=== PATIENT | male | born 1955 | race Caucasian/White ===

== ENCOUNTER 2019-07-01 18:20 | Inpatient (IN) ==
[2019-07-01 19:00] LABS: INR 0.8; Prothrombin Time 9.6 Seconds (9.4-12.1)
[2019-07-01] MEDS ORDERED: Ondansetron 4 MG/2 ML VIAL IVP ONE (19:32)
[2019-07-01] MEDS ORDERED: Morphine Sulfate 2 MG/ML SYRINGE IVP ONE (19:32)
[2019-07-01 19:34] LABS: Red Cell Distribution Width 13.1 % (11.5-14.5)
[2019-07-01 19:45] LABS: Bilirubin,Urine Small (Negative); Blood,Urine Negative (Negative); Clarity,Urine Clear (Clear); Color,Urine Orange (Yellow); Glucose,Urine (UA) Normal (Normal); Ketones,Urine 40 mg/dL (Negative); Leukocyte Esterase,Urine Trace (Negative); Nitrite,Urine Negative (Negative); Protein,Urine 100 mg/dL (Neg-Trace); Specific Gravity,Urine 1.025 (1.010-1.025); Urobilinogen,Urine >=8.0 mg/dL (Normal)
[2019-07-01 19:46] LABS: Hyaline Casts,Urine None Seen per lpf (None-Few); RBC,Urine 0-3 per hpf (0-3); Squamous Epithelial Cell,Urine Few per lpf (None-Few); WBC,Urine 0-3 per hpf (0-3)
[2019-07-01] MEDS ORDERED: Isovue-370 500 ML BOTTLE IVP ONE (19:54)
[2019-07-01 19:55] LABS: Bacteria,Urine Few per hpf (None-Few); Mucus,Urine Few per lpf (Few)
[2019-07-01 19:55] LABS: Basophils # 0.1 K/mcL (0.0-0.2); Basophils % 1.4 %; Eosinophils % 0.2 %; Hematocrit 40.5 % (37.5-50.1); Hemoglobin 14.8 g/dL (12.9-16.9); Immature Platelets 8.1 % (1.1-6.1); Lymphocytes # 2.2 K/mcL (0.6-4.6); Lymphocytes % 42.9 %; Mean Corpuscular HGB Conc 36.5 g/dL (31.6-35.5); Mean Corpuscular Hemoglobin 33.4 pg (28.0-33.3); Mean Corpuscular Volume 91.4 fL (83.0-100.0); Mean Platelet Volume 10.3 fL (9.4-12.4); Monocytes # 0.6 K/mcL (0.0-1.3); Monocytes % 12.7 %; Neutrophils # 2.1 K/mcL (1.6-8.9); Red Blood Count 4.43 M/mcL (4.19-5.50); Segmented Neutrophils % 41.8 %
[2019-07-01 20:02] LABS: Alanine Aminotransferase 116 Units/L (7-52); Albumin 3.9 g/dL (3.5-5.7); Albumin/Globulin Ratio 1.3 (1.1-2.2); Alkaline Phosphatase 85 Units/L (34-104); Aspartate Amino Transferase 132 Units/L (13-39); BUN/Creatinine Ratio 23 (6-26); Bilirubin,Direct 0.6 mg/dL (0.0-0.2); Bilirubin,Total 1.6 mg/dL (0.3-1.0); Blood Urea Nitrogen 14 mg/dL (8-23); Calcium 8.8 mg/dL (8.6-10.3); Carbon Dioxide 15 mEq/L (23-29); Chloride 95 mEq/L (98-107); Globulin 2.9 g/dL (2.4-3.5); Glucose 81 mg/dL (70-105); Lipase 22 Units/L (11-82); Osmolality,Calculated 272 (280-300); Potassium 3.3 mEq/L (3.5-5.1); Sodium 131 mEq/L (136-145); Total Protein 6.8 g/dL (6.4-8.9); Troponin I < 0.03 ng/mL (< 0.04); eGFR For African Americans > 60 (> 60); eGFR For Non-African Americans > 60 (> 60)
[2019-07-01 20:04] LABS: Platelet Count 90 K/mcL (140-400)
[2019-07-01 20:05] LABS: Platelet Estimate Decreased (Normal)
[2019-07-01] MEDS ORDERED: Pantoprazole 40 MG VIAL IVP ONE (21:07)
[2019-07-01] MEDS ORDERED: Metoclopramide 10 MG/2 ML VIAL IVP ONE (21:45)
[2019-07-01] MEDS ORDERED: Naloxone 0.4 MG/ML INJ IVP PRN (21:50)
[2019-07-01] MEDS ORDERED: *HR* LORazepam 2 MG/ML VIAL IVP PRN ×2 (21:56)
[2019-07-01] MEDS: 0.9 % Sodium Chloride 1,000 ML IVC SCH (22:20)
[2019-07-01] MEDS: Nicotine 21 MG PATCH.TD24 TD SCH (23:10)
[2019-07-02] MEDS: *HR* Promethazine 25 MG/ML VIAL IVP PRN ×3 (01:06→21:27)
[2019-07-02 02:33] LABS: Mean Corpuscular Volume 93.7 fL (83.0-100.0); Red Cell Distribution Width 13.2 % (11.5-14.5)
[2019-07-02 02:35] LABS: Hematocrit 37.4 % (37.5-50.1); Hemoglobin 13.2 g/dL (12.9-16.9); INR 0.9; Immature Platelets 8.1 % (1.1-6.1); Mean Corpuscular HGB Conc 35.3 g/dL (31.6-35.5); Mean Corpuscular Hemoglobin 33.1 pg (28.0-33.3); Prothrombin Time 10.4 Seconds (9.4-12.1); Red Blood Count 3.99 M/mcL (4.19-5.50); White Blood Count 5.3 K/mcL (4.3-11.1)
[2019-07-02 03:04] LABS: Alanine Aminotransferase 110 Units/L (7-52); Albumin 3.6 g/dL (3.5-5.7); Albumin/Globulin Ratio 1.3 (1.1-2.2); Alkaline Phosphatase 81 Units/L (34-104); Aspartate Amino Transferase 112 Units/L (13-39); BUN/Creatinine Ratio 22 (6-26); Bilirubin,Direct 0.5 mg/dL (0.0-0.2); Bilirubin,Total 1.5 mg/dL (0.3-1.0); Blood Urea Nitrogen 14 mg/dL (8-23); Calcium 8.1 mg/dL (8.6-10.3); Carbon Dioxide 18 mEq/L (23-29); Chloride 98 mEq/L (98-107); Globulin 2.8 g/dL (2.4-3.5); Glucose 78 mg/dL (70-105); Magnesium 1.8 mg/dL (1.6-2.6); Osmolality,Calculated 269 (280-300); Phosphorous 3.7 mg/dL (2.7-4.5); Potassium 3.5 mEq/L (3.5-5.1); Sodium 130 mEq/L (136-145); Total Protein 6.4 g/dL (6.4-8.9); eGFR For African Americans > 60 (> 60); eGFR For Non-African Americans > 60 (> 60)
[2019-07-02] MEDS: Ondansetron 4 MG/2 ML VIAL IVP PRN (03:21)
[2019-07-02] MEDS: 0.9 % Sodium Chloride 1,000 ML IVC SCH (03:27)
[2019-07-02] MEDS: *HR* LORazepam 2 MG/ML VIAL IVP PRN ×3 (03:33→18:38)
[2019-07-02] MEDS: Pantoprazole 40 MG VIAL IVP SCH (07:57)
[2019-07-02] MEDS: Nicotine 21 MG PATCH.TD24 TD SCH (07:57)
[2019-07-02] MEDS ORDERED: *HR* Propofol 200 MG/20 ML VIAL IVP ONE (09:23)
[2019-07-02] MEDS ORDERED: Lidocaine -MPF 2% 2 ML VIAL ONE (09:23)
[2019-07-02] MEDS ORDERED: *HR* Midazolam HCl 2 MG/2 ML VIAL ONE (10:16)
[2019-07-02] MEDS ORDERED: Fluconazole 400 MG/200 ML 400 MG/200 ML BAG IVPB ONE (11:09)
[2019-07-02] MEDS: Thiamine (B-1) 100 MG, Folic Acid 1 MG, MVI, adult with vitamin K 10 ML in 0.9 % Sodi... IVPB SCH (18:38)
[2019-07-03] MEDS: 0.9 % Sodium Chloride 1,000 ML IVC SCH ×3 (01:02→20:21)
[2019-07-03] MEDS: *HR* Promethazine 25 MG/ML VIAL IVP PRN ×3 (06:44→23:43)
[2019-07-03 07:06] LABS: Hematocrit 37.3 % (37.5-50.1); Red Cell Distribution Width 13.2 % (11.5-14.5)
[2019-07-03 07:08] LABS: Hemoglobin 13.2 g/dL (12.9-16.9); Mean Corpuscular HGB Conc 35.4 g/dL (31.6-35.5); Mean Corpuscular Hemoglobin 33.8 pg (28.0-33.3); Mean Corpuscular Volume 95.6 fL (83.0-100.0); Mean Platelet Volume 10.6 fL (9.4-12.4); Red Blood Count 3.9 M/mcL (4.19-5.50); White Blood Count 4.2 K/mcL (4.3-11.1)
[2019-07-03 07:28] LABS: Alanine Aminotransferase 72 Units/L (7-52); Albumin 3.3 g/dL (3.5-5.7); Albumin/Globulin Ratio 1.3 (1.1-2.2); Alkaline Phosphatase 65 Units/L (34-104); Aspartate Amino Transferase 50 Units/L (13-39); BUN/Creatinine Ratio 19 (6-26); Bilirubin,Direct 0.4 mg/dL (0.0-0.2); Bilirubin,Total 1.4 mg/dL (0.3-1.0); Blood Urea Nitrogen 10 mg/dL (8-23); Calcium 8.3 mg/dL (8.6-10.3); Carbon Dioxide 25 mEq/L (23-29); Chloride 98 mEq/L (98-107); Globulin 2.6 g/dL (2.4-3.5); Glucose 93 mg/dL (70-105); Osmolality,Calculated 279 (280-300); Potassium 3.2 mEq/L (3.5-5.1); Sodium 135 mEq/L (136-145); Total Protein 5.9 g/dL (6.4-8.9); eGFR For African Americans > 60 (> 60); eGFR For Non-African Americans > 60 (> 60)
[2019-07-03] MEDS ORDERED: Potassium Chloride Elixir 20 MEQ/15 ML UDC PO ONE (07:54)
[2019-07-03 08:36] LABS: Hepatitis B Surface Antigen Nonreactive (Nonreactive)
[2019-07-03] MEDS ORDERED: Fluconazole 40 MG/ML UDC PO SCH (09:00)
[2019-07-03 09:05] LABS: Hepatitis C Virus Antibody Nonreactive (Nonreactive)
[2019-07-03 09:06] LABS: Hepatitis A Antibody IgM Nonreactive (Nonreactive); Hepatitis B Core IgM Nonreactive (Nonreactive)
[2019-07-03] MEDS: Pantoprazole 40 MG VIAL IVP SCH (09:16)
[2019-07-03] MEDS: Nicotine 21 MG PATCH.TD24 TD SCH (09:17)
[2019-07-03] MEDS ORDERED: Fluconazole 100 MG TABLET PO SCH (10:45)
[2019-07-03] MEDS: Fluconazole 100 MG TABLET PO SCH (11:10)
[2019-07-03] MEDS: *HR* LORazepam 2 MG/ML VIAL IVP PRN ×2 (11:11→17:23)
[2019-07-03] MEDS: Ondansetron 4 MG/2 ML VIAL IVP PRN ×2 (11:11→20:31)
[2019-07-03] MEDS: Thiamine (B-1) 100 MG, Folic Acid 1 MG, MVI, adult with vitamin K 10 ML in 0.9 % Sodi... IVPB SCH (17:19)
[2019-07-03] MEDS: traZODone 50 MG TABLET PO SCH (20:21)
[2019-07-04] MEDS ORDERED: *HR* Promethazine 25 MG/ML VIAL IVP ONE (04:24)
[2019-07-04] MEDS ORDERED: Ketorolac 15 MG/ML VIAL IVP ONE (04:25)
[2019-07-04] MEDS: Ondansetron 4 MG/2 ML VIAL IVP PRN ×2 (04:34→15:53)
[2019-07-04 06:22] LABS: Red Cell Distribution Width 13.2 % (11.5-14.5)
[2019-07-04 06:24] LABS: Hematocrit 34.5 % (37.5-50.1); Hemoglobin 12.1 g/dL (12.9-16.9); Immature Platelets 9.2 % (1.1-6.1); Mean Corpuscular HGB Conc 35.1 g/dL (31.6-35.5); Mean Corpuscular Hemoglobin 33.3 pg (28.0-33.3); Mean Platelet Volume 11.9 fL (9.4-12.4); Red Blood Count 3.63 M/mcL (4.19-5.50); White Blood Count 4.7 K/mcL (4.3-11.1)
[2019-07-04] MEDS ORDERED: 0.9 % Sodium Chloride 1,000 ML IVC SCH (09:15)
[2019-07-04] MEDS: *HR* Promethazine 25 MG/ML VIAL IVP PRN (10:27)
[2019-07-04] MEDS: Pantoprazole 40 MG VIAL IVP SCH (10:27)
[2019-07-04] MEDS: Fluconazole 100 MG TABLET PO SCH (10:27)
[2019-07-04] MEDS: Nicotine 21 MG PATCH.TD24 TD SCH (10:28)
[2019-07-04] MEDS: 0.9 % Sodium Chloride 1,000 ML IVC SCH (10:28)
[2019-07-04 16:51] LABS: Alanine Aminotransferase 69 Units/L (7-52); Albumin 3.5 g/dL (3.5-5.7); Albumin/Globulin Ratio 1.3 (1.1-2.2); Alkaline Phosphatase 82 Units/L (34-104); Aspartate Amino Transferase 48 Units/L (13-39); BUN/Creatinine Ratio 12 (6-26); Bilirubin,Direct 0.2 mg/dL (0.0-0.2); Bilirubin,Indirect 0.5 mg/dL (0.0-1.0); Bilirubin,Total 0.7 mg/dL (0.3-1.0); Blood Urea Nitrogen 10 mg/dL (8-23); Calcium 8.5 mg/dL (8.6-10.3); Carbon Dioxide 23 mEq/L (23-29); Chloride 100 mEq/L (98-107); Globulin 2.7 g/dL (2.4-3.5); Glucose 110 mg/dL (70-105); Osmolality,Calculated 272 (280-300); Potassium 3.3 mEq/L (3.5-5.1); Sodium 131 mEq/L (136-145); Total Protein 6.2 g/dL (6.4-8.9); eGFR For African Americans > 60 (> 60); eGFR For Non-African Americans > 60 (> 60)
[2019-07-04] MEDS: Thiamine (B-1) 100 MG, Folic Acid 1 MG, MVI, adult with vitamin K 10 ML in 0.9 % Sodi... IVPB SCH (19:18)
[2019-07-04] MEDS: *HR* LORazepam 2 MG/ML VIAL IVP PRN (20:48)
[2019-07-04] MEDS: traZODone 50 MG TABLET PO SCH (20:48)
[2019-07-05] MEDS: Nicotine 21 MG PATCH.TD24 TD SCH (08:51)
[2019-07-05] MEDS: Pantoprazole 40 MG VIAL IVP SCH (08:51)
[2019-07-05] MEDS: Fluconazole 100 MG TABLET PO SCH (08:51)
[2019-07-05 13:35] LABS: Hematocrit 38.1 % (37.5-50.1); Hemoglobin 13.5 g/dL (12.9-16.9); Mean Corpuscular HGB Conc 35.4 g/dL (31.6-35.5); Mean Corpuscular Hemoglobin 33.8 pg (28.0-33.3); Mean Corpuscular Volume 95.3 fL (83.0-100.0); Mean Platelet Volume 10.9 fL (9.4-12.4); Platelet Count 120 K/mcL (140-400); White Blood Count 6.1 K/mcL (4.3-11.1)
[2019-07-05 13:58] LABS: Albumin 3.5 g/dL (3.5-5.7); Albumin/Globulin Ratio 1.3 (1.1-2.2); Bilirubin,Direct 0.2 mg/dL (0.0-0.2); Bilirubin,Indirect 0.5 mg/dL (0.0-1.0); Bilirubin,Total 0.7 mg/dL (0.3-1.0); Globulin 2.8 g/dL (2.4-3.5); Total Protein 6.3 g/dL (6.4-8.9)
[2019-07-05 14:00] LABS: BUN/Creatinine Ratio 15 (6-26); Blood Urea Nitrogen 9 mg/dL (8-23); Calcium 8.6 mg/dL (8.6-10.3); Carbon Dioxide 19 mEq/L (23-29); Chloride 103 mEq/L (98-107); Glucose 113 mg/dL (70-105); Magnesium 1.6 mg/dL (1.6-2.6); Osmolality,Calculated 273 (280-300); Potassium 4.3 mEq/L (3.5-5.1); Sodium 132 mEq/L (136-145); eGFR For African Americans > 60 (> 60); eGFR For Non-African Americans > 60 (> 60)
[2019-07-05] MEDS ORDERED: *HR* LORazepam 1 MG TABLET PO PRN ×3 (14:14)
[2019-07-05] MEDS: traZODone 50 MG TABLET PO SCH (21:25)
[2019-07-06 06:33] VITALS: BP 114/74
[2019-07-06] MEDS: Fluconazole 100 MG TABLET PO SCH (07:47)
[2019-07-06] MEDS: Nicotine 21 MG PATCH.TD24 TD SCH (07:47)
[2019-07-06] MEDS ORDERED: FLU Vac QV 19-20 (6Month+)/PF 0.5 ML SYRINGE IM ONE (10:05)
== END 2019-07-06 12:37 | disposition home or self-care (01) | DRG 369 ==
LOC: 3ANU 18:20 → EMEROOARM 18:20 → SUATTDRO 21:46 → 3ANU 21:46 → SUATTDRO 07-03 13:53
PROVIDERS: ADMIT Internal Medicine; ATTEND Internal Medicine
PROC: ENDOEBX (2019-07-02 09:45)

== ENCOUNTER 2020-11-09 02:26 | Observation (INO) ==
[2020-11-10] MEDS ORDERED: Naloxone 0.4 MG/ML INJ IVP PRN (03:39)
[2020-11-10] MEDS ORDERED: *HR* LORazepam 2 MG/ML VIAL IVP PRN (03:42)
[2020-11-10] MEDS: Ondansetron 4 MG/2 ML VIAL IVP PRN ×3 (04:10→21:08)
[2020-11-10] MEDS: 0.9 % Sodium Chloride 1,000 ML IVC SCH ×2 (04:11→14:40)
[2020-11-10] MEDS: Pantoprazole 40 MG VIAL IVP SCH ×2 (05:05→17:19)
[2020-11-10] MEDS: *HR* LORazepam 2 MG/ML VIAL IVP PRN ×2 (05:32→21:03)
[2020-11-10 07:18] LABS: Immature Granulocytes % 0.3 % (0-4)
[2020-11-10 07:20] LABS: Basophils # 0.1 K/mcL (0.0-0.2); Basophils % 1.1 %; Eosinophils # 0.3 K/mcL (0.0-0.6); Eosinophils % 3.6 %; Hematocrit 32.2 % (37.5-50.1); Hemoglobin 10.7 g/dL (12.9-16.9); Immature Platelets 7.2 % (1.1-6.1); Lymphocytes # 1.6 K/mcL (0.6-4.6); Lymphocytes % 22.3 %; Mean Corpuscular HGB Conc 33.2 g/dL (31.6-35.5); Mean Corpuscular Hemoglobin 32.4 pg (28.0-33.3); Mean Corpuscular Volume 97.6 fL (83.0-100.0); Mean Platelet Volume 10.3 fL (9.4-12.4); Monocytes # 0.4 K/mcL (0.0-1.3); Monocytes % 5.2 %; Neutrophils # 4.9 K/mcL (1.6-8.9); Red Cell Distribution Width 15.6 % (11.5-14.5); Segmented Neutrophils % 67.5 %; White Blood Count 7.3 K/mcL (4.3-11.1)
[2020-11-10 07:24] LABS: Platelet Count 91 K/mcL (140-400)
[2020-11-10 07:40] LABS: Alanine Aminotransferase 35 Units/L (7-52); Albumin 3.2 g/dL (3.5-5.7); Alkaline Phosphatase 133 Units/L (34-104); Aspartate Amino Transferase 82 Units/L (13-39); BUN/Creatinine Ratio 16 (6-26); Bilirubin,Total 1.4 mg/dL (0.3-1.0); Blood Urea Nitrogen 8 mg/dL (8-23); Calcium 7.9 mg/dL (8.6-10.3); Carbon Dioxide 20 mEq/L (23-29); Chloride 102 mEq/L (98-107); Globulin 3.1 g/dL (2.4-3.5); Glucose 65 mg/dL (70-105); Magnesium 1.5 mg/dL (1.6-2.6); Osmolality,Calculated 284 (280-300); Potassium 3.8 mEq/L (3.5-5.1); Sodium 139 mEq/L (136-145); Total Protein 6.3 g/dL (6.4-8.9); eGFR For African Americans > 60 (> 60); eGFR For Non-African Americans > 60 (> 60)
[2020-11-10 07:52] LABS: % Iron Saturation 96 % (20-55); Iron 241 mcg/dL (65-175); Transferrin 180 mg/dL (203-362)
[2020-11-10 08:09] LABS: Ferritin 237 ng/mL (20-250)
[2020-11-10 09:41] LABS: INR 1.1; Prothrombin Time 12.9 Seconds (9.4-12.1)
[2020-11-10 09:44] LABS: Lipase 12 Units/L (11-82)
[2020-11-10] MEDS ORDERED: GuaiFENesin Liq 200 MG/10 ML UDC PO PRN (15:55)
[2020-11-10] MEDS: Thiamine (B-1) 100 MG, Folic Acid 1 MG, MVI, adult with vitamin K 10 ML in 0.9 % Sodi... IVPB SCH (17:20)
[2020-11-10 17:42] LABS: Hematocrit 32.4 % (37.5-50.1); Hemoglobin 10.6 g/dL (12.9-16.9)
[2020-11-10] MEDS ORDERED: Prochlorperazine 10 MG/2 ML VIAL IVP PRN (21:22)
[2020-11-11] MEDS: *HR* LORazepam 2 MG/ML VIAL IVP PRN ×2 (04:16→21:04)
[2020-11-11] MEDS: Pantoprazole 40 MG VIAL IVP SCH ×2 (04:16→17:34)
[2020-11-11 05:14] LABS: Basophils % 0.5 %; Hematocrit 33.6 % (37.5-50.1); Mean Corpuscular Volume 98.8 fL (83.0-100.0)
[2020-11-11 05:16] LABS: Eosinophils # 0.3 K/mcL (0.0-0.6); Eosinophils % 5.4 %; Hemoglobin 10.9 g/dL (12.9-16.9); Immature Granulocytes % 0.5 % (0-4); Immature Platelets 10.4 % (1.1-6.1); Lymphocytes # 1.4 K/mcL (0.6-4.6); Lymphocytes % 22.9 %; Mean Corpuscular HGB Conc 32.4 g/dL (31.6-35.5); Mean Corpuscular Hemoglobin 32.1 pg (28.0-33.3); Mean Platelet Volume 11.4 fL (9.4-12.4); Monocytes # 0.3 K/mcL (0.0-1.3); Monocytes % 5.4 %; Red Cell Distribution Width 15.3 % (11.5-14.5); Segmented Neutrophils % 65.3 %; White Blood Count 6.1 K/mcL (4.3-11.1)
[2020-11-11 05:17] LABS: Platelet Count 57 K/mcL (140-400)
[2020-11-11 05:34] LABS: Alanine Aminotransferase 31 Units/L (7-52); Albumin 3.3 g/dL (3.5-5.7); Albumin/Globulin Ratio 1.1 (1.1-2.2); Alkaline Phosphatase 140 Units/L (34-104); Aspartate Amino Transferase 67 Units/L (13-39); BUN/Creatinine Ratio 13 (6-26); Bilirubin,Total 2.2 mg/dL (0.3-1.0); Blood Urea Nitrogen 5 mg/dL (8-23); Calcium 8.4 mg/dL (8.6-10.3); Carbon Dioxide 23 mEq/L (23-29); Chloride 102 mEq/L (98-107); Globulin 3.1 g/dL (2.4-3.5); Glucose 106 mg/dL (70-105); Osmolality,Calculated 278 (280-300); Potassium 3.5 mEq/L (3.5-5.1); Sodium 135 mEq/L (136-145); Total Protein 6.4 g/dL (6.4-8.9); eGFR For African Americans > 60 (> 60); eGFR For Non-African Americans > 60 (> 60)
[2020-11-11 08:12] LABS: Magnesium 1.8 mg/dL (1.6-2.6)
[2020-11-11] MEDS ORDERED: Ketorolac 15 MG/ML VIAL IM ONE (10:07)
[2020-11-11 10:16] LABS: Adenovirus Not Detected (Not Detect); Bordetella Pertussis Not Detected (Not Detect); Chlamydophila pneumoniae Not Detected (Not Detect); Coronavirus 229E Not Detected (Not Detect); Coronavirus HKU1 Not Detected (Not Detect); Coronavirus NL63 Not Detected (Not Detect); Coronavirus OC43 Not Detected (Not Detect); Human Metapneumovirus Not Detected (Not Detect); Human Rhinovirus/Enterovirus Not Detected (Not Detect); Influenza A Subtype 2009 H1 Not Detected (Not Detect); Influenza B Not Detected (Not Detect); Mycoplasma pneumoniae Not Detected (Not Detect); Parainfluenza Virus 1 Not Detected (Not Detect); Parainfluenza Virus 2 Not Detected (Not Detect); Parainfluenza Virus 3 Not Detected (Not Detect); Parainfluenza Virus 4 Not Detected (Not Detect); Respiratory Syncytial Virus Not Detected (Not Detect); SARS-CoV-2 Not Detected (Not Detect)
[2020-11-11] MEDS ORDERED: Lidocaine -MPF 2% 2 ML VIAL ONE (12:15)
[2020-11-11] MEDS: Ondansetron 4 MG/2 ML VIAL IVP PRN (16:17)
[2020-11-11] MEDS: Thiamine (B-1) 100 MG, Folic Acid 1 MG, MVI, adult with vitamin K 10 ML in 0.9 % Sodi... IVPB SCH (17:11)
[2020-11-12] MEDS ORDERED: Nicotine 14 MG PATCH.TD24 TD SCH (01:57)
[2020-11-12] MEDS: Pantoprazole 40 MG VIAL IVP SCH (04:13)
[2020-11-12] MEDS: *HR* LORazepam 2 MG/ML VIAL IVP PRN (04:13)
[2020-11-12 06:50] LABS: Mean Corpuscular Volume 99.1 fL (83.0-100.0)
[2020-11-12 06:51] LABS: Basophils % 0.5 %; Eosinophils # 0.3 K/mcL (0.0-0.6); Eosinophils % 5.9 %; Hematocrit 33.4 % (37.5-50.1); Hemoglobin 10.8 g/dL (12.9-16.9); Immature Granulocytes % 0.7 % (0-4); Immature Platelets 12.1 % (1.1-6.1); Lymphocytes # 1.2 K/mcL (0.6-4.6); Lymphocytes % 21.9 %; Mean Corpuscular HGB Conc 32.3 g/dL (31.6-35.5); Mean Platelet Volume 11.3 fL (9.4-12.4); Monocytes # 0.3 K/mcL (0.0-1.3); Red Blood Count 3.37 M/mcL (4.19-5.50); Red Cell Distribution Width 14.9 % (11.5-14.5); White Blood Count 5.6 K/mcL (4.3-11.1)
[2020-11-12 07:01] LABS: Neutrophils # 3.6 K/mcL (1.6-8.9); Platelet Count 47 K/mcL (140-400)
[2020-11-12 07:40] LABS: Alanine Aminotransferase 26 Units/L (7-52); Albumin 3.2 g/dL (3.5-5.7); Albumin/Globulin Ratio 1.1 (1.1-2.2); Alkaline Phosphatase 135 Units/L (34-104); Aspartate Amino Transferase 53 Units/L (13-39); BUN/Creatinine Ratio 10 (6-26); Bilirubin,Direct 0.5 mg/dL (0.0-0.2); Bilirubin,Indirect 0.8 mg/dL (0.0-1.0); Bilirubin,Total 1.3 mg/dL (0.3-1.0); Blood Urea Nitrogen 5 mg/dL (8-23); Calcium 8.5 mg/dL (8.6-10.3); Carbon Dioxide 23 mEq/L (23-29); Chloride 104 mEq/L (98-107); Glucose 108 mg/dL (70-105); Osmolality,Calculated 278 (280-300); Potassium 3.6 mEq/L (3.5-5.1); Sodium 135 mEq/L (136-145); Total Protein 6.2 g/dL (6.4-8.9); eGFR For African Americans > 60 (> 60); eGFR For Non-African Americans > 60 (> 60)
[2020-11-12 10:56] VITALS: BP 120/81
[2020-11-12] MEDS: Ondansetron 4 MG/2 ML VIAL IVP PRN (11:42)
== END 2020-11-12 16:53 | disposition home health service (06) ==
LOC: 3ANU
PROVIDERS: ADMIT Internal Medicine; ATTEND Internal Medicine
PROC: ENDOEBX (2020-11-11 14:50)

== ENCOUNTER 2020-11-29 22:57 | Observation (INO) ==
[2020-11-30] MEDS ORDERED: Acetaminophen 325 MG TABLET PO PRN (01:29)
[2020-11-30] MEDS ORDERED: Naloxone 0.4 MG/ML INJ IVP PRN (01:29)
[2020-11-30] MEDS ORDERED: *HR* LORazepam 2 MG/ML VIAL IVP PRN (01:31)
[2020-11-30] MEDS: Ondansetron 4 MG/2 ML VIAL IVP PRN ×3 (01:37→14:32)
[2020-11-30] MEDS ORDERED: Thiamine (B-1) 100 MG, Folic Acid 1 MG, MVI, adult with vitamin K 10 ML in 0.9 % Sodi... IVPB SCH (02:00)
[2020-11-30] MEDS ORDERED: *HR* LORazepam 2 MG/ML VIAL IVP ONE (04:04)
[2020-11-30] MEDS ORDERED: *HR* Promethazine 25 MG/ML VIAL IM ONE (04:09)
[2020-11-30] MEDS: Nicotine 21 MG PATCH.TD24 TD SCH (04:47)
[2020-11-30 06:51] LABS: Eosinophils % 0.4 %; Red Cell Distribution Width 15.1 % (11.5-14.5)
[2020-11-30 06:53] LABS: Basophils % 0.4 %; Hematocrit 25.9 % (37.5-50.1); Hemoglobin 8.7 g/dL (12.9-16.9); Immature Granulocytes % 0.5 % (0-4); Immature Platelets 8.4 % (1.1-6.1); Lymphocytes # 1.4 K/mcL (0.6-4.6); Lymphocytes % 18.9 %; Mean Corpuscular HGB Conc 33.6 g/dL (31.6-35.5); Mean Corpuscular Hemoglobin 33.1 pg (28.0-33.3); Mean Corpuscular Volume 98.5 fL (83.0-100.0); Mean Platelet Volume 11.6 fL (9.4-12.4); Monocytes # 0.5 K/mcL (0.0-1.3); Monocytes % 6.8 %; Neutrophils # 5.4 K/mcL (1.6-8.9); Red Blood Count 2.63 M/mcL (4.19-5.50); White Blood Count 7.4 K/mcL (4.3-11.1)
[2020-11-30 06:58] LABS: Platelet Count 80 K/mcL (140-400)
[2020-11-30 06:59] LABS: INR 1.1; Prothrombin Time 13.2 Seconds (9.4-12.1)
[2020-11-30 07:10] LABS: Alanine Aminotransferase 31 Units/L (7-52); Albumin 3.3 g/dL (3.5-5.7); Albumin/Globulin Ratio 1.2 (1.1-2.2); Alkaline Phosphatase 107 Units/L (34-104); Aspartate Amino Transferase 53 Units/L (13-39); BUN/Creatinine Ratio 39 (6-26); Bilirubin,Total 1.9 mg/dL (0.3-1.0); Blood Urea Nitrogen 18 mg/dL (8-23); Calcium 8.2 mg/dL (8.6-10.3); Carbon Dioxide 19 mEq/L (23-29); Chloride 102 mEq/L (98-107); Globulin 2.7 g/dL (2.4-3.5); Glucose 85 mg/dL (70-105); Magnesium 1.5 mg/dL (1.6-2.6); Osmolality,Calculated 287 (280-300); Phosphorous 3.3 mg/dL (2.7-4.5); Potassium 3.8 mEq/L (3.5-5.1); Sodium 138 mEq/L (136-145); eGFR For African Americans > 60 (> 60); eGFR For Non-African Americans > 60 (> 60)
[2020-11-30] MEDS: Pantoprazole 40 MG VIAL IVP SCH ×2 (07:41→18:48)
[2020-11-30] MEDS: *HR* LORazepam 2 MG/ML VIAL IVP PRN (14:30)
[2020-11-30 17:25] LABS: Basophils % 0.5 %; Eosinophils # 0.1 K/mcL (0.0-0.6); Eosinophils % 0.8 %; Hematocrit 28.1 % (37.5-50.1); Hemoglobin 8.8 g/dL (12.9-16.9); Immature Granulocytes % 0.5 % (0-4); Lymphocytes # 1.8 K/mcL (0.6-4.6); Lymphocytes % 24.2 %; Mean Corpuscular HGB Conc 31.3 g/dL (31.6-35.5); Mean Corpuscular Hemoglobin 32.5 pg (28.0-33.3); Mean Corpuscular Volume 103.7 fL (83.0-100.0); Mean Platelet Volume 11.3 fL (9.4-12.4); Monocytes # 0.6 K/mcL (0.0-1.3); Monocytes % 8.7 %; Neutrophils # 4.8 K/mcL (1.6-8.9); Platelet Count 64 K/mcL (140-400); Red Blood Count 2.71 M/mcL (4.19-5.50); Red Cell Distribution Width 15.3 % (11.5-14.5); Segmented Neutrophils % 65.3 %; White Blood Count 7.3 K/mcL (4.3-11.1)
[2020-11-30] MEDS: traZODone 50 MG TABLET PO SCH (19:51)
[2020-11-30] MEDS: Benzonatate 100 MG CAPSULE PO PRN (19:51)
[2020-12-01] MEDS: Ondansetron 4 MG/2 ML VIAL IVP PRN ×2 (00:44→08:03)
[2020-12-01] MEDS: *HR* LORazepam 2 MG/ML VIAL IVP PRN ×4 (00:45→20:03)
[2020-12-01 03:27] LABS: Red Cell Distribution Width 15.1 % (11.5-14.5)
[2020-12-01 03:29] LABS: Hematocrit 27.4 % (37.5-50.1); Immature Platelets 10.4 % (1.1-6.1); Mean Corpuscular HGB Conc 32.8 g/dL (31.6-35.5); Mean Corpuscular Hemoglobin 33.2 pg (28.0-33.3); Mean Corpuscular Volume 101.1 fL (83.0-100.0); Red Blood Count 2.71 M/mcL (4.19-5.50); White Blood Count 6.3 K/mcL (4.3-11.1)
[2020-12-01 03:45] LABS: BUN/Creatinine Ratio 30 (6-26); Blood Urea Nitrogen 14 mg/dL (8-23); Calcium 8.7 mg/dL (8.6-10.3); Carbon Dioxide 25 mEq/L (23-29); Chloride 100 mEq/L (98-107); Glucose 91 mg/dL (70-105); Osmolality,Calculated 278 (280-300); Potassium 3.3 mEq/L (3.5-5.1); Sodium 134 mEq/L (136-145); eGFR For African Americans > 60 (> 60); eGFR For Non-African Americans > 60 (> 60)
[2020-12-01] MEDS: Pantoprazole 40 MG VIAL IVP SCH ×2 (05:03→17:47)
[2020-12-01] MEDS: Nicotine 21 MG PATCH.TD24 TD SCH (08:02)
[2020-12-01] MEDS: Cholecalciferol (D-3) 1,000 UNIT (25MCG) TABLET PO SCH (08:02)
[2020-12-01] MEDS ORDERED: Lidocaine -MPF 2% 2 ML VIAL ONE (09:29)
[2020-12-01] MEDS: Benzonatate 100 MG CAPSULE PO PRN (10:33)
[2020-12-01] MEDS ORDERED: *HR* HYDROmorphone (PF) 1 MG/ML SYRINGE IVP ONE (11:02)
[2020-12-01] MEDS ORDERED: Prochlorperazine 10 MG/2 ML VIAL IVP ONE (11:15)
[2020-12-01] MEDS: cefTRIAXone 1,000 MG in Water for inj. (sterile) 10 ML IVP SCH (11:29)
[2020-12-01] MEDS: Octreotide 400 MCG in 0.9 % Sodium Chloride 100 ML IVC SCH ×2 (11:56→20:25)
[2020-12-01] MEDS: *HR* OxyCODONE/APAP 5/325 TABLET PO PRN (19:45)
[2020-12-01] MEDS: traZODone 50 MG TABLET PO SCH (20:03)
[2020-12-02] MEDS: *HR* OxyCODONE/APAP 5/325 TABLET PO PRN ×4 (00:32→20:05)
[2020-12-02] MEDS: Octreotide 400 MCG in 0.9 % Sodium Chloride 100 ML IVC SCH ×3 (04:10→21:06)
[2020-12-02] MEDS: Pantoprazole 40 MG VIAL IVP SCH ×2 (05:07→16:04)
[2020-12-02] MEDS: *HR* LORazepam 2 MG/ML VIAL IVP PRN ×2 (06:49→20:15)
[2020-12-02] MEDS: cefTRIAXone 1,000 MG in Water for inj. (sterile) 10 ML IVP SCH (08:00)
[2020-12-02] MEDS: Cholecalciferol (D-3) 1,000 UNIT (25MCG) TABLET PO SCH (08:00)
[2020-12-02] MEDS: Nicotine 21 MG PATCH.TD24 TD SCH (08:00)
[2020-12-02 08:14] LABS: Hemoglobin 8.6 g/dL (12.9-16.9); Red Cell Distribution Width 14.2 % (11.5-14.5)
[2020-12-02 08:16] LABS: Hematocrit 26.7 % (37.5-50.1); Immature Platelets 10.4 % (1.1-6.1); Mean Corpuscular HGB Conc 32.2 g/dL (31.6-35.5); Mean Corpuscular Hemoglobin 32.5 pg (28.0-33.3); Mean Corpuscular Volume 100.8 fL (83.0-100.0); Mean Platelet Volume 11.7 fL (9.4-12.4); Red Blood Count 2.65 M/mcL (4.19-5.50); White Blood Count 5.6 K/mcL (4.3-11.1)
[2020-12-02 08:36] LABS: Alanine Aminotransferase 32 Units/L (7-52); Albumin 3.5 g/dL (3.5-5.7); Albumin/Globulin Ratio 1.1 (1.1-2.2); Alkaline Phosphatase 120 Units/L (34-104); Aspartate Amino Transferase 70 Units/L (13-39); BUN/Creatinine Ratio 21 (6-26); Bilirubin,Direct 0.6 mg/dL (0.0-0.2); Bilirubin,Indirect 0.8 mg/dL (0.0-1.0); Bilirubin,Total 1.4 mg/dL (0.3-1.0); Blood Urea Nitrogen 10 mg/dL (8-23); Calcium 8.7 mg/dL (8.6-10.3); Carbon Dioxide 25 mEq/L (23-29); Chloride 99 mEq/L (98-107); Globulin 3.1 g/dL (2.4-3.5); Glucose 147 mg/dL (70-105); Osmolality,Calculated 278 (280-300); Potassium 3.5 mEq/L (3.5-5.1); Sodium 133 mEq/L (136-145); Total Protein 6.6 g/dL (6.4-8.9); eGFR For African Americans > 60 (> 60); eGFR For Non-African Americans > 60 (> 60)
[2020-12-02] MEDS: Benzonatate 100 MG CAPSULE PO PRN (16:04)
[2020-12-02] MEDS: traZODone 50 MG TABLET PO SCH (20:15)
[2020-12-02] MEDS: Melatonin 3 MG TABLET PO PRN (20:15)
[2020-12-03] MEDS: *HR* OxyCODONE/APAP 5/325 TABLET PO PRN ×3 (00:05→20:40)
[2020-12-03] MEDS: Pantoprazole 40 MG VIAL IVP SCH ×2 (05:09→17:26)
[2020-12-03] MEDS: Octreotide 400 MCG in 0.9 % Sodium Chloride 100 ML IVC SCH (05:09)
[2020-12-03] MEDS: cefTRIAXone 1,000 MG in Water for inj. (sterile) 10 ML IVP SCH (08:49)
[2020-12-03] MEDS: Nicotine 21 MG PATCH.TD24 TD SCH (08:49)
[2020-12-03] MEDS: Multivit/Ca/Min/Fe/FA 1 TAB TABLET PO SCH (08:51)
[2020-12-03] MEDS: Folic Acid 1 MG TABLET PO SCH (08:51)
[2020-12-03] MEDS: Cholecalciferol (D-3) 1,000 UNIT (25MCG) TABLET PO SCH (08:51)
[2020-12-03] MEDS: Thiamine (B-1) 100 MG TABLET PO SCH (08:51)
[2020-12-03] MEDS: traZODone 50 MG TABLET PO SCH (20:39)
[2020-12-03] MEDS: Benzonatate 100 MG CAPSULE PO PRN (20:39)
[2020-12-03] MEDS: Melatonin 3 MG TABLET PO PRN (20:40)
[2020-12-04] MEDS: Pantoprazole 40 MG VIAL IVP SCH (06:05)
[2020-12-04] MEDS: Folic Acid 1 MG TABLET PO SCH (08:40)
[2020-12-04] MEDS: Multivit/Ca/Min/Fe/FA 1 TAB TABLET PO SCH (08:40)
[2020-12-04] MEDS: Cholecalciferol (D-3) 1,000 UNIT (25MCG) TABLET PO SCH (08:41)
[2020-12-04] MEDS: Thiamine (B-1) 100 MG TABLET PO SCH (08:41)
[2020-12-04] MEDS: Nicotine 21 MG PATCH.TD24 TD SCH (08:41)
[2020-12-04 10:39] VITALS: BP 114/69
== END 2020-12-04 13:06 | disposition home or self-care (01) ==
LOC: 3ANU → SUATTDRO 11-30 00:47
PROVIDERS: ADMIT Internal Medicine; ATTEND Internal Medicine

== ENCOUNTER 2021-05-11 17:19 | Inpatient (IN) ==
[2021-05-11] MEDS ORDERED: *HR* LORazepam 2 MG/ML VIAL IVP PRN ×2 (21:34)
[2021-05-11] MEDS ORDERED: Naloxone 0.4 MG/ML INJ IVP PRN (21:43)
[2021-05-11] MEDS ORDERED: 0.9 % Sodium Chloride 1,000 ML IVC SCH (21:45)
[2021-05-12] MEDS: *HR* LORazepam 2 MG/ML VIAL IVP PRN ×2 (01:06→13:49)
[2021-05-12 04:45] LABS: Hematocrit 32.9 % (37.5-50.1); Hemoglobin 10.7 g/dL (12.9-16.9); Mean Corpuscular HGB Conc 32.5 g/dL (31.6-35.5); Mean Corpuscular Hemoglobin 31.6 pg (28.0-33.3); Mean Corpuscular Volume 97.1 fL (83.0-100.0); Mean Platelet Volume 10.9 fL (9.4-12.4); Red Blood Count 3.39 M/mcL (4.19-5.50); Red Cell Distribution Width 18.1 % (11.5-14.5); White Blood Count 8.1 K/mcL (4.3-11.1)
[2021-05-12 04:46] LABS: Platelet Count 76 K/mcL (140-400)
[2021-05-12 05:08] LABS: Alanine Aminotransferase 48 Units/L (7-52); Albumin 2.8 g/dL (3.5-5.7); Albumin/Globulin Ratio 0.9 (1.1-2.2); Alkaline Phosphatase 213 Units/L (34-104); Aspartate Amino Transferase 156 Units/L (13-39); BUN/Creatinine Ratio 20 (6-26); Bilirubin,Total 4.4 mg/dL (0.3-1.0); Blood Urea Nitrogen 10 mg/dL (8-23); Calcium 7.8 mg/dL (8.6-10.3); Carbon Dioxide 19 mEq/L (23-29); Chloride 101 mEq/L (98-107); Globulin 3.1 g/dL (2.4-3.5); Glucose 83 mg/dL (70-105); Magnesium 1.4 mg/dL (1.6-2.6); Osmolality,Calculated 284 (280-300); Phosphorous 2.9 mg/dL (2.7-4.5); Potassium 3.5 mEq/L (3.5-5.1); Sodium 138 mEq/L (136-145); Total Protein 5.9 g/dL (6.4-8.9); eGFR For African Americans > 60 (> 60); eGFR For Non-African Americans > 60 (> 60)
[2021-05-12] MEDS: Pantoprazole 40 MG VIAL IVP SCH ×2 (05:14→18:27)
[2021-05-12] MEDS ORDERED: Metoclopramide 10 MG/2 ML VIAL IVP ONE (09:15)
[2021-05-12] MEDS: Octreotide 400 MCG in 0.9 % Sodium Chloride 100 ML IVC SCH ×2 (11:13→21:32)
[2021-05-12] MEDS: cefTRIAXone 1,000 MG in Water for inj. (sterile) 10 ML IVP SCH (11:14)
[2021-05-12] MEDS ORDERED: GuaiFENesin Liq 200 MG/10 ML UDC PO PRN (13:46)
[2021-05-12] MEDS ORDERED: SODIUM CHLORIDE/NAHCO3/KCL/PEG 4,000 ML SOLN.RECON PO ONE (17:00)
[2021-05-12] MEDS: Thiamine (B-1) 100 MG, Folic Acid 1 MG, MVI, adult with vitamin K 10 ML in 0.9 % Sodi... IVPB SCH (21:30)
[2021-05-12] MEDS: traZODone 50 MG TABLET PO SCH (21:32)
[2021-05-13] MEDS: Ondansetron 4 MG/2 ML VIAL IVP PRN ×2 (03:27→23:35)
[2021-05-13 03:40] LABS: Basophils # 0.1 K/mcL (0.0-0.2); Basophils % 1.1 %; Eosinophils # 0.3 K/mcL (0.0-0.6); Eosinophils % 2.8 %; Hematocrit 31.7 % (37.5-50.1); Hemoglobin 10.5 g/dL (12.9-16.9); Immature Granulocytes % 2.3 % (0-4); Immature Platelets 9.1 % (1.1-6.1); Lymphocytes # 1.8 K/mcL (0.6-4.6); Lymphocytes % 18.7 %; Mean Corpuscular HGB Conc 33.1 g/dL (31.6-35.5); Mean Corpuscular Hemoglobin 32.8 pg (28.0-33.3); Mean Corpuscular Volume 99.1 fL (83.0-100.0); Mean Platelet Volume 11.5 fL (9.4-12.4); Monocytes # 0.7 K/mcL (0.0-1.3); Monocytes % 7.1 %; Neutrophils # 6.4 K/mcL (1.6-8.9); White Blood Count 9.4 K/mcL (4.3-11.1)
[2021-05-13 03:43] LABS: Platelet Count 59 K/mcL (140-400)
[2021-05-13 03:45] LABS: BUN/Creatinine Ratio 26 (6-26); Blood Urea Nitrogen 12 mg/dL (8-23); Calcium 7.8 mg/dL (8.6-10.3); Carbon Dioxide 21 mEq/L (23-29); Chloride 101 mEq/L (98-107); Glucose 137 mg/dL (70-105); Magnesium 1.8 mg/dL (1.6-2.6); Osmolality,Calculated 286 (280-300); Phosphorous 2.3 mg/dL (2.7-4.5); Sodium 137 mEq/L (136-145); eGFR For African Americans > 60 (> 60); eGFR For Non-African Americans > 60 (> 60)
[2021-05-13] MEDS: Pantoprazole 40 MG VIAL IVP SCH ×2 (05:13→17:14)
[2021-05-13] MEDS: Octreotide 400 MCG in 0.9 % Sodium Chloride 100 ML IVC SCH ×4 (06:12→17:14)
[2021-05-13] MEDS: cefTRIAXone 1,000 MG in Water for inj. (sterile) 10 ML IVP SCH (08:20)
[2021-05-13] MEDS: Acetaminophen 325 MG TABLET PO PRN (09:36)
[2021-05-13 10:50] LABS: INR 1.3; Prothrombin Time 14.4 Seconds (9.4-12.1)
[2021-05-13] MEDS: *HR* LORazepam 2 MG/ML VIAL IVP PRN ×2 (12:50→23:16)
[2021-05-13] MEDS: Nicotine 21 MG PATCH.TD24 TD SCH (12:53)
[2021-05-13] MEDS ORDERED: SODIUM CHLORIDE/NAHCO3/KCL/PEG 4,000 ML SOLN.RECON PO ONE (17:00)
[2021-05-13] MEDS: Thiamine (B-1) 100 MG, Folic Acid 1 MG, MVI, adult with vitamin K 10 ML in 0.9 % Sodi... IVPB SCH (17:15)
[2021-05-13] MEDS: traZODone 50 MG TABLET PO SCH (20:33)
[2021-05-14 02:42] LABS: Monocytes % 8.3 %
[2021-05-14 02:44] LABS: Basophils # 0.1 K/mcL (0.0-0.2); Basophils % 1.2 %; Eosinophils # 0.3 K/mcL (0.0-0.6); Eosinophils % 4.9 %; Hematocrit 32.4 % (37.5-50.1); Immature Granulocytes % 0.7 % (0-4); Immature Platelets 7.3 % (1.1-6.1); Lymphocytes # 1.3 K/mcL (0.6-4.6); Lymphocytes % 22.1 %; Mean Corpuscular HGB Conc 30.9 g/dL (31.6-35.5); Mean Corpuscular Hemoglobin 31.5 pg (28.0-33.3); Mean Corpuscular Volume 102.2 fL (83.0-100.0); Mean Platelet Volume 10.9 fL (9.4-12.4); Monocytes # 0.5 K/mcL (0.0-1.3); Neutrophils # 3.7 K/mcL (1.6-8.9); Red Blood Count 3.17 M/mcL (4.19-5.50); Red Cell Distribution Width 17.6 % (11.5-14.5); Segmented Neutrophils % 62.8 %; White Blood Count 5.9 K/mcL (4.3-11.1)
[2021-05-14 02:51] LABS: Platelet Count 56 K/mcL (140-400)
[2021-05-14 02:52] LABS: BUN/Creatinine Ratio 25 (6-26); Blood Urea Nitrogen 10 mg/dL (8-23); Calcium 7.6 mg/dL (8.6-10.3); Carbon Dioxide 23 mEq/L (23-29); Chloride 100 mEq/L (98-107); Glucose 102 mg/dL (70-105); Magnesium 1.4 mg/dL (1.6-2.6); Osmolality,Calculated 279 (280-300); Potassium 3.4 mEq/L (3.5-5.1); Sodium 135 mEq/L (136-145); eGFR For African Americans > 60 (> 60); eGFR For Non-African Americans > 60 (> 60)
[2021-05-14] MEDS: Pantoprazole 40 MG VIAL IVP SCH ×2 (05:50→17:55)
[2021-05-14] MEDS ORDERED: Potassium Effervescent 25 MEQ TABLET.EFF PO ONE (08:06)
[2021-05-14] MEDS: Octreotide 400 MCG in 0.9 % Sodium Chloride 100 ML IVC SCH (08:52)
[2021-05-14] MEDS: cefTRIAXone 1,000 MG in Water for inj. (sterile) 10 ML IVP SCH (08:56)
[2021-05-14] MEDS: Furosemide 20 MG TABLET PO SCH (09:12)
[2021-05-14] MEDS: Nicotine 21 MG PATCH.TD24 TD SCH (09:14)
[2021-05-14] MEDS: Cholecalciferol (D-3) 1,000 UNIT (25MCG) TABLET PO SCH (09:16)
[2021-05-14] MEDS ORDERED: *HR* Propofol 200 MG/20 ML VIAL IVP ONE (11:32)
[2021-05-14] MEDS ORDERED: Lidocaine -MPF 2% 5 ML VIAL ONE (11:32)
[2021-05-14] MEDS ORDERED: Ondansetron 4 MG/2 ML VIAL ONE (11:37)
[2021-05-14] MEDS: Thiamine (B-1) 100 MG, Folic Acid 1 MG, MVI, adult with vitamin K 10 ML in 0.9 % Sodi... IVPB SCH (17:55)
[2021-05-14] MEDS: traZODone 50 MG TABLET PO SCH (21:34)
[2021-05-15 01:12] LABS: Basophils % 0.7 %; Eosinophils % 1.4 %; Hematocrit 31.3 % (37.5-50.1); Hemoglobin 9.9 g/dL (12.9-16.9); Immature Granulocytes % 0.6 % (0-4); Immature Platelets 7.3 % (1.1-6.1); Lymphocytes % 19.1 %; Mean Corpuscular HGB Conc 31.6 g/dL (31.6-35.5); Mean Corpuscular Hemoglobin 31.6 pg (28.0-33.3); Mean Platelet Volume 10.4 fL (9.4-12.4); Monocytes % 11.7 %; Red Blood Count 3.13 M/mcL (4.19-5.50); Red Cell Distribution Width 17.2 % (11.5-14.5); Segmented Neutrophils % 66.5 %; White Blood Count 8.7 K/mcL (4.3-11.1)
[2021-05-15 01:13] LABS: Basophils # 0.1 K/mcL (0.0-0.2); Eosinophils # 0.1 K/mcL (0.0-0.6); Lymphocytes # 1.7 K/mcL (0.6-4.6); Neutrophils # 5.8 K/mcL (1.6-8.9); Nucleated Red Blood Cells 0.2 /100 WBC (0)
[2021-05-15 01:14] LABS: Platelet Count 62 K/mcL (140-400)
[2021-05-15 01:37] LABS: BUN/Creatinine Ratio 17 (6-26); Blood Urea Nitrogen 6 mg/dL (8-23); Calcium 7.4 mg/dL (8.6-10.3); Carbon Dioxide 21 mEq/L (23-29); Chloride 100 mEq/L (98-107); Glucose 106 mg/dL (70-105); Magnesium 1.5 mg/dL (1.6-2.6); Osmolality,Calculated 280 (280-300); Phosphorous 2.6 mg/dL (2.7-4.5); Potassium 3.4 mEq/L (3.5-5.1); Sodium 136 mEq/L (136-145); eGFR For African Americans > 60 (> 60); eGFR For Non-African Americans > 60 (> 60)
[2021-05-15] MEDS: Pantoprazole 40 MG VIAL IVP SCH (05:51)
[2021-05-15] MEDS: Octreotide 400 MCG in 0.9 % Sodium Chloride 100 ML IVC SCH (07:40)
[2021-05-15] MEDS: Nicotine 21 MG PATCH.TD24 TD SCH (09:52)
[2021-05-15] MEDS: Furosemide 20 MG TABLET PO SCH (09:53)
[2021-05-15] MEDS: Folic Acid 1 MG TABLET PO SCH (09:53)
[2021-05-15] MEDS: Cholecalciferol (D-3) 1,000 UNIT (25MCG) TABLET PO SCH (09:53)
[2021-05-15] MEDS ORDERED: Potassium Effervescent 25 MEQ TABLET.EFF PO ONE (15:07)
[2021-05-15] MEDS: Thiamine (B-1) 100 MG TABLET PO SCH (17:43)
[2021-05-15] MEDS: Magnesium Oxide 400 MG TABLET PO SCH (20:44)
[2021-05-15] MEDS: traZODone 50 MG TABLET PO SCH (20:44)
[2021-05-16 02:46] LABS: Basophils # 0.1 K/mcL (0.0-0.2); Basophils % 1.2 %; Eosinophils # 0.2 K/mcL (0.0-0.6); Eosinophils % 3.8 %; Hematocrit 31.9 % (37.5-50.1); Hemoglobin 10.1 g/dL (12.9-16.9); Immature Granulocytes % 0.7 % (0-4); Immature Platelets 7.5 % (1.1-6.1); Lymphocytes # 1.5 K/mcL (0.6-4.6); Lymphocytes % 24.3 %; Mean Corpuscular HGB Conc 31.7 g/dL (31.6-35.5); Mean Corpuscular Hemoglobin 31.9 pg (28.0-33.3); Mean Corpuscular Volume 100.6 fL (83.0-100.0); Mean Platelet Volume 11.5 fL (9.4-12.4); Monocytes # 0.7 K/mcL (0.0-1.3); Monocytes % 12.1 %; Neutrophils # 3.5 K/mcL (1.6-8.9); Platelet Count 74 K/mcL (140-400); Red Blood Count 3.17 M/mcL (4.19-5.50); Red Cell Distribution Width 17.7 % (11.5-14.5); Segmented Neutrophils % 57.9 %
[2021-05-16 03:03] LABS: BUN/Creatinine Ratio 21 (6-26); Blood Urea Nitrogen 7 mg/dL (8-23); Calcium 7.6 mg/dL (8.6-10.3); Carbon Dioxide 28 mEq/L (23-29); Chloride 99 mEq/L (98-107); Glucose 94 mg/dL (70-105); Magnesium 1.7 mg/dL (1.6-2.6); Osmolality,Calculated 278 (280-300); Phosphorous 2.8 mg/dL (2.7-4.5); Potassium 3.4 mEq/L (3.5-5.1); Sodium 135 mEq/L (136-145); eGFR For African Americans > 60 (> 60); eGFR For Non-African Americans > 60 (> 60)
[2021-05-16] MEDS: Magnesium Oxide 400 MG TABLET PO SCH ×2 (10:07→20:53)
[2021-05-16] MEDS: Cholecalciferol (D-3) 1,000 UNIT (25MCG) TABLET PO SCH (10:07)
[2021-05-16] MEDS: Furosemide 20 MG TABLET PO SCH (10:07)
[2021-05-16] MEDS: Nicotine 21 MG PATCH.TD24 TD SCH (10:08)
[2021-05-16] MEDS: Folic Acid 1 MG TABLET PO SCH (10:08)
[2021-05-16] MEDS: Thiamine (B-1) 100 MG TABLET PO SCH (10:08)
[2021-05-16] MEDS: Ondansetron 4 MG/2 ML VIAL IVP PRN (10:12)
[2021-05-16] MEDS: Acetaminophen 325 MG TABLET PO PRN (10:12)
[2021-05-16] MEDS ORDERED: FLU Vac QV 21-22 (6Month+)/PF 0.5 ML SYRINGE IM ONE (15:09)
[2021-05-16] MEDS ORDERED: Moderna Covid-19 Vaccine 100MCG/0.5mL IM ONE (15:09)
[2021-05-16 16:13] LABS: Adenovirus Not Detected (Not Detect); Bordetella Pertussis Not Detected (Not Detect); Coronavirus 229E Not Detected (Not Detect); Coronavirus HKU1 Not Detected (Not Detect); Coronavirus NL63 Not Detected (Not Detect); Coronavirus OC43 Not Detected (Not Detect); Human Metapneumovirus Not Detected (Not Detect); Human Rhinovirus/Enterovirus Not Detected (Not Detect); Influenza A Subtype 2009 H1 Not Detected (Not Detect); Influenza B Not Detected (Not Detect); Parainfluenza Virus 1 Not Detected (Not Detect); Parainfluenza Virus 2 Not Detected (Not Detect); Parainfluenza Virus 3 Not Detected (Not Detect); Parainfluenza Virus 4 Not Detected (Not Detect); Respiratory Syncytial Virus Not Detected (Not Detect); SARS-CoV-2 Not Detected (Not Detect)
[2021-05-16 16:14] LABS: Chlamydophila pneumoniae Not Detected (Not Detect); Mycoplasma pneumoniae Not Detected (Not Detect)
[2021-05-16 19:23] VITALS: BP 103/67; PULSE 66; TEMP 97.6; O2SAT 95
[2021-05-16] MEDS: traZODone 50 MG TABLET PO SCH (20:53)
== END 2021-05-16 21:44 | DRG 381 ==
LOC: 3ANU → SUATTDRO 20:51
PROVIDERS: ADMIT Internal Medicine; ATTEND Hospitalist
PROC: ENDOCBX (2021-05-14 13:00)